=== PATIENT | female | born 1965 | race Caucasian/White ===

== ENCOUNTER → 2024-02-14 12:53 | Outpatient (REF) | payer OTHER, SELFPAY | LOC: HWRCS 12:53 | PROVIDERS: ATTENDING PHYSICIAN Internal Medicine Cardiovascular Disease; FAMILY PHYSICIAN Family Medicine | DX: I51.7 Cardiomegaly (principal) | CPT/HCPCS: 93306 ==

== ENCOUNTER → 2024-08-21 12:10 | Outpatient (REF) | payer OTHER, SELFPAY | LOC: WDC 12:10 | PROVIDERS: ATTENDING PHYSICIAN Obstetrics & Gynecology Gynecology | DX: Z12.31 Encounter for screening mammogram for malignant neoplasm of breast (principal) | CPT/HCPCS: 77063; 77067 ==

== ENCOUNTER → 2024-10-17 07:29 | Outpatient (REF) | payer OTHER, SELFPAY | LOC: HWRAD 07:29 | PROVIDERS: ATTENDING PHYSICIAN Physician Assistant; FAMILY PHYSICIAN Family Medicine | DX: R10.13 Epigastric pain (principal) | CPT/HCPCS: 76700 ==

== ENCOUNTER → 2024-12-19 07:30 | Outpatient (REF) | payer OTHER, SELFPAY | LOC: MRI 07:30 | PROVIDERS: ATTENDING PHYSICIAN Family Medicine | DX: H93.A1 Pulsatile tinnitus, right ear (principal) | CPT/HCPCS: 70544 ==

== ENCOUNTER 2025-06-02 12:11 | Emergency (ER) | payer OTHER, SELFPAY ==
[2025-06-02 12:39] VITALS: BP 192/90
[2025-06-02 13:47] LABS: Hematocrit 38.4 % (37.0-47.0); Hemoglobin 13.4 g/dL (12.0-16.0); Mean Corp Hgb Conc. 34.9 g/dL (33.0-37.0); Mean Corpuscular Volume 89.5 fL (81.0-99.0); Nucleated Red Blood Cells % 0 %; Platelet Count 285 10^3/uL (130-400); Red Cell Dist. Width 12.1 % (11.5-14.5)
[2025-06-02 14:06] LABS: ALT (SGPT) 22 U/L (0-35); AST (SGOT) 25 U/L (14-36); Albumin 4.4 g/dl (3.5-5.0); Alkaline Phosphatase 112 U/L (38-126); Blood Urea Nitrogen 19 mg/dl (7-17); Calcium 9.6 mg/dl (8.4-10.2); Carbon Dioxide 28 mmol/L (22-30); Chloride 106 mmol/L (98-107); Glucose 99 mg/dl (70-99); Potassium 4.3 mmol/L (3.5-5.1); Sodium 139 mmol/L (135-145); Total Protein 6.9 g/dl (6.3-8.2); eGFR > 60.00
--- NOTE | 2025-06-02 15:14 | ED.GENMED ---
History of Present Illness
General
Chief Complaint: Visual Problem
Source: patient and spouse
Time Seen by Provider: 06/02/25 12:41
History of Present Illness
History of Present Illness:
Note:
CHIEF COMPLAINT(S)
Blurred vision and headache.
HISTORY OF PRESENT ILLNESS
The patient is a 59-year-old female who presented with sudden-onset blurred vision this morning while at a service. She described the vision as blurry with some black spots, likening it to 'kaleidoscope vision.' She initially suspected an issue with
her reading glasses. This episode lasted approximately 10 minutes, beginning at around 10:45 AM. She reports previous episodes resembling ocular migraines approximately four times over the past five years but has no formal history of migraines. A
headache preceded her vision issue, starting yesterday on one side and shifting to the other side today, accompanied by light tingling. The onset of her symptoms raised concerns due to a family history of vision-related issues and multiple
sclerosis. Following these symptoms, she contacted family members working in [employer] who advised her to get evaluated. Post-episode, her vision improved, and the headache lessened. She reports no history of full vision loss.
CHRONIC MEDICAL CONDITIONS SIGNIFICANTLY AFFECTING CARE
The patient has hypertension and is on medications for blood pressure, cholesterol, and a beta-ha for premature ventricular contractions, which she states have significantly improved her symptoms.
MEDICATIONS
The patient is currently prescribed medication for hypertension, cholesterol, and a beta-ha for cardiac arrhythmias. She also takes calcium supplements as per a prior recommendation.
PHYSICAL EXAM
General: Alert, oriented, and no acute distress observed.
Skin: Warm, dry.
Head: Normocephalic, atraumatic.
Neck: Supple, trachea midline. Normal range of motion.
Ears, Nose, Mouth, and Throat: Oral mucosa moist. Pupils equal and reactive to light.
Cardiovascular: Normal peripheral perfusion. No edema.
Respiratory: Respirations are non-labored.
Gastrointestinal: Abdomen nondistended.
Back: Normal range of motion, alignment observed.
Musculoskeletal: Normal range of motion, normal strength. No ataxia in bilateral upper and lower extremities.
Neurological: Alert and oriented to person, place, time, and situation. No focal neurological deficits observed. Normal [id number] coordination.
Psychiatric: Cooperative, appropriate mood and affect.
PLAN
1. Conduct a detailed physical exam and neurological assessment.
2. Perform a CT scan of the head to compare with a previous MRI and rule out acute intracranial pathology.
3. Conduct basic laboratory studies for further evaluation.
4. Monitor symptoms and provide symptomatic relief with analgesics like acetaminophen for headache management.
5. Discuss the findings and next steps with the patient�s cloth picker if needed.
DIFFERENTIAL DIAGNOSIS
The Differential Diagnosis includes, in no particular order and is not limited to:
- Ocular migraine
- Transient ischemic attack (TIA)
- Retinal artery occlusion
- Acute angle-closure glaucoma
- Migraine with aura
- Idiopathic intracranial hypertension
- Hypertensive crisis
- Medication-induced vision changes
- New onset of multiple sclerosis
- Cerebrovascular accident (stroke)
Disposition:
SUMMARY OF ENCOUNTER
The patient, a 59-year-old female, was seen in the emergency department due to sudden-onset blurred vision and headache. The symptoms were described as 'kaleidoscope vision' with some black spots. This episode began at 10:45 AM, lasting
approximately 10 minutes. There was a concern for a transient ischemic attack (TIA) due to the symptomatology and her family history of vision-related issues and multiple sclerosis. However, her symptoms of 'kaleidoscope vision' are similar to
ocular migraines, which she has experienced in the past. She did consume mushroom coffee today, which might have triggered the episode. The patient reports headaches that started yesterday and progressed today. She has a history of hypertension, is
on medication for blood pressure, cholesterol, and is taking a beta-ha.
DISPOSITION
The patient is discharged with outpatient follow-up instructions.
ASSESSMENT
The patient likely experienced an ocular migraine, which resolved spontaneously without full vision loss. There remains a differential diagnosis possibility of other conditions based on her medical history.
PLAN
1. Discharge the patient with instructions for follow-up care with primary care physician and possibly a neurologist for further evaluation of her migraines.
2. Educate the patient about potential triggers for migraine episodes, including new dietary items like mushroom coffee.
3. Monitor for any changes in symptoms and seek immediate care if episodes recur or worsen.
INDEPENDENT REVIEW OF LABS AND INTERPRETATION OF TESTS
- My independent review of CBC shows normal white blood cell count, hemoglobin, and platelets.
- My independent review of CMP is normal with normal creatinine.
- My independent review of LFTs is normal.
- My independent review of CT of the head is unremarkable.
PATIENT EDUCATION AND COUNSELING
The patient was counseled about avoiding potential triggers for her migraines and advised on the need for follow-up care with a primary care physician and potentially a neurologist. Symptoms to watch for, including recurrence or worsening of
headache and vision symptoms, were discussed.
FOLLOW-UP INSTRUCTIONS
The patient was advised to schedule an appointment with her primary care physician within the next few days for follow-up and ongoing management of her migraines. Follow-up with a neurologist is recommended for further evaluation based on family
history and recurrent ocular migraines.
MEDICAL DECISION MAKING
1. Number and Complexity of Problems Addressed: Chronic conditions affecting care include hypertension and history of ocular migraines. Differential diagnosis includes ocular migraine, TIA, migraine with aura, medication-induced vision changes,
hypertensive crisis, and new onset of multiple sclerosis.
2. Data:
Category 1: My independent interpretation of the CT scan of the head is unremarkable.
3. Risk:
Consideration of Admission/Observation: Escalation of care including admission/observation was considered given the complexity and risk of the patients presenting complaint, exam findings, and her underlying comorbidities. However, ultimately, I
feel the patient is safe for outpatient management with close follow-up. Reasoning: Work-up reassuring, does not reveal any acute life/organ-threatening processes, patients symptoms well controlled upon reevaluation, reexamination is reassuring,
vitals are stable, patient agreeable with discharge, reliable for follow-up.
DIAGNOSIS
- Ocular migraine - ICD-10: G43.B0
- Headache - ICD-10: R51.9
Phy Exam
Physical Exam
Physical Exam:
.
Course
Orders/Labs/Results
Orders:
Orders
06/02/25 13:01
CT Head W/o Iv Contrast Urgent
Comment:
Reason For Exam: vision changes
06/02/25 13:34
Complete Blood Count/With Diff Urgent
Comprehensive Metabolic Panel Urgent
Abnormal Lab Results
06/02/25
13:34
MCH 31.2 H pg
(27.0-31.0)
BUN 19 H mg/dl
(7-17)
06/02/25 13:34
06/02/25 13:34
Vital Signs
Blood pressure: 141/73
Initial and Last Documented VS:
Initial Vital Signs
Temp Pulse Resp BP Pulse Ox
97.9 F 88 18 192/90 98
06/02/25 12:39 06/02/25 12:39 06/02/25 12:39 06/02/25 12:39 06/02/25 12:39
Last Documented Vital Signs
Temp Pulse Resp BP Pulse Ox
97.9 F 88 18 141/73 98
06/02/25 12:39 06/02/25 12:39 06/02/25 12:39 06/02/25 15:32 06/02/25 15:14
*Pulse Oximetry
SaO2: 98
Oxygen Mode of Delivery: Room air
Patient hypoxic: no
*Critical Care Note
Total Time (30-74mins, 75-104mins- exclusive of procedures): Not Applicable
ED Attending Note
-
Portions of this chart may have been created with voice recognition software.� Occasional wrong word or��sound alike� substitutions may have occurred due to the inherent limitations of voice recognition software.
Discharge Plan
Departure
Patient Disposition: Home (Routine Discharge)
Date of Disposition: 06/02/25
Time of Disposition: 15:24
Patient with high blood pressure during this ER visit?: Yes
Discharge Problem:
Vision changes
Instructions: BLOOD PRESSURE
Referrals:
Alok Jordan, DO [Family Provider, Family Practice]
Activity Restrictions/Additional Instructions:
Vision Changes
Return immediately for weakness of any kind, loss of vision, difficulty walking, speech changes or any other concerns. Please drink plenty of fluids.
Interventions
Interventions:
*Risk Screen - Suicide Last Done: 06/02/25 13:35
*General Assessment Last Done: 06/02/25 13:35
*Neglect/Abuse Screening Last Done: 06/02/25 13:35
*ED- Fall Risk Assessment Last Done: 06/02/25 13:35
*ED COVID-19 Vaccine History Last Done: 06/02/25 13:35
ED-EENT Assessment Last Done: 06/02/25 13:35
ED- Neurological Assessment Last Done: 06/02/25 13:35
Discharge Date and Time
Print Language: [id number]
== END 2025-06-02 15:32 | disposition home or self-care (01) ==
LOC: EMR 12:11
PROVIDERS: EMERGENCY PHYSICIAN Emergency Medicine; FAMILY PHYSICIAN Family Medicine
DX: G43.109 Migraine with aura, not intractable, without status migrainosus (principal); I10 Essential (primary) hypertension; I49.3 Ventricular premature depolarization
CPT/HCPCS: 99284; 70450; 80053; 85025

== ENCOUNTER → 2025-10-29 11:41 | Outpatient (REF) | payer OTHER, SELFPAY | LOC: WDC 11:41 | PROVIDERS: ATTENDING PHYSICIAN Obstetrics & Gynecology Gynecology | DX: Z12.31 Encounter for screening mammogram for malignant neoplasm of breast (principal) | CPT/HCPCS: 77063; 77067 ==